=== PATIENT | female | born 1985 | race Two or more races ===

== ENCOUNTER 2017-06-08 22:16 | Emergency (ER) | payer BC ==
[~2017-06-08] VITALS: Ht 177.8 cm; Wt 74.8 kg
--- NOTE | 2017-06-08 22:28 | NUR ---
BB SELF; "NOTICED DISCHARGE WITH BLEED X 1 DAY" PT AOX4 RR EVEN AND UNLABORED. NO SOB NOTED. NAD NOTED. NO NVD AT THIS TIME. PT GOWNED AND PLACED ON MONITOR WAITING FOR MD AHUJA. URINE COLLECTED.
--- NOTE | 2017-06-08 22:43 | NUR ---
DR. KYLE AT BS FOR LEIGHA
--- NOTE | 2017-06-08 22:59 | NUR ---
DR. KYLE AT BEDSIDE FOR PELVIC EXAM. EMT KATHI AT BEDSIDE.
--- NOTE | 2017-06-08 23:45 | NUR ---
DR. KYLE AT BEDSIDE SPEAKING TO PT REGARDING RESULTS
[2017-06-08] MEDS ORDERED: LIDOCAINE /MPF 1% VIAL 5 ML VIAL ONE (23:49)
[2017-06-08] MEDS ORDERED: AZITHROMYCIN 250 MG TABLET ONE (23:49)
[2017-06-08] MEDS ORDERED: CEFTRIAXONE 1 G VIAL ONE (23:49)
[2017-06-08] MEDS: CEFTRIAXONE 1 G VIAL IM ONE (23:54)
[2017-06-09] MEDS ORDERED: AZITHROMYCIN 250 MG TABLET PO ONE
[2017-06-09] MEDS: CEFTRIAXONE 1 G VIAL IM ONE (00:08)
--- NOTE | 2017-06-09 00:22 | NUR ---
No ase after taking atb medication as ordered. Patient discharged to home in stable condition. Written and verbal after care instructions given. Patient verbalizes understanding of instruction. ambulatory with a steady gait
[2017-06-09 00:24] VITALS: BP 124/72
[2017-06-13 00:10] LABS: *NEISSERIA GONORRHOEAE NAA Negative (Negative); CHLAMYDIA TRACHOMATIS NAA Negative (Negative)
== END 2017-06-09 00:25 | disposition home or self-care (01) ==
LOC: ER 22:19
DX: N72 Inflammatory disease of cervix uteri (principal); E03.9 Hypothyroidism, unspecified
CPT/HCPCS: 84703; 87210; 87491; 87591; 99284; A4606; A6402; J0696; J3490; Z7610